=== PATIENT | male | born 1960 | race Caucasian/White ===

== ENCOUNTER 2018-10-05 12:44 | Emergency (ER) | payer BC ==
[2018-10-05 14:19] VITALS: BP 132/70
--- NOTE | 2018-10-05 16:20 | UC ---
Lower Extremity/Ankle HPI - HPI Summary HPI Summary: Pt c/o gradual onset of large tender blister on the ball of left foot. Pt reports that he stuck a pin in the blister at home " a few days ago". Pt wear steel toe boots daily at work, has DM and neuropathy in bilateral feet. Pt stands for prolonged periods of time. - History of Current Complaint Chief Complaint: UCSkin Stated Complaint: BILATERAL FOOT COMPLAINT Time Seen by Provider: 10/05/18 15:21 Hx Obtained From: Patient Onset/Duration: Gradual Onset, Lasting Days, Still Present Severity Initially: Mild Severity Currently: Mild Pain Intensity: 4 Pain Scale Used: 0-10 Numeric Aggravating Factor(s): Standing, Ambulation Alleviating Factor(s): Nothing Able to Bear Weight: Yes - Risk Factors Gout Risk Factors: Age Over 40, Male, Diabetes DVT Risk Factors: Negative Septic Arthritis Risk Factor: Negative - Allergies/Home Medications Allergies/Adverse Reactions: Allergies Allergy/AdvReac Type Severity Reaction Status Date / Time oxycodone Allergy Hives Verified 10/05/18 14:12 Home Medications: Home Medications Aspirin TAB* [Aspirin 325 MG TAB*] 325 mg PO DAILY 10/05/18 [History Confirmed 10/05/18] Insulin GLARGINE(*) [Lantus(*)] 20 units SUBCUT QPM 10/05/18 [History Confirmed 10/05/18] Liraglutide (NF) [Victoza (NF)] 18 mg SUBCUT QAM 10/05/18 [History Confirmed 04/15] Simvastatin TAB(NF) [Zocor 10 MG (NF)] 10 mg PO DAILY 10/05/18 [History Confirmed 10/05/18] Varenicline 0.5 mg Tab(Nf) [Chantix 0.5 MG TAB(NF)] 0.5 mg PO BID 10/05/18 [ History Confirmed 10/05/18] glyBURIDE TAB* [Diabeta TAB*] 2.5 mg PO BID 10/05/18 [History Confirmed 10/05/18 ] metFORMIN* [Glucophage 500 MG TAB *] 500 mg PO BID 10/05/18 [History Confirmed 10/05/18] PMH/Surg Hx/FS Hx/Imm Hx Previously Healthy: Yes Endocrine History: Diabetes Cardiovascular History: Cardiac Disease - Surgical History Surgical History: Yes Surgery Procedure, Year, and Place: Triple CABG, 2004, [facility] - Family History Known Family History: Positive: Cardiac Disease - Social History Occupation: Employed Full-time Lives: With Family Alcohol Use: Rare Substance Use Type: None Smoking Status (MU): Heavy Every Day Tobacco Smoker Amount Used/How Often: 2 PPD Length of Time of Smoking/Using Tobacco: On and Off Since Age 17 Have You Smoked in the Last Year: Yes Household Exposure Type: Cigarettes Review of Systems All Other Systems Reviewed And Are Negative: Yes Constitutional: Positive: Negative Skin: Positive: Other - blister left foot Eyes: Positive: Negative ENT: Positive: Negative Respiratory: Positive: Negative Cardiovascular: Positive: Negative Gastrointestinal: Positive: Negative Genitourinary: Positive: Negative Motor: Positive: Negative Neurovascular: Positive: Other - neuropathy bilateral feet at baseline Musculoskeletal: Positive: Negative Neurological: Positive: Negative Psychological: Positive: Negative Is Patient Immunocompromised?: No Physical Exam Triage Information Reviewed: Yes Appearance: Well-Appearing Vital Signs: Initial Vital Signs Temp 97.9 F 10/05/18 14:10 Pulse 82 10/05/18 14:10 Resp 18 10/05/18 14:10 BP 132/70 10/05/18 14:10 Pulse Ox 99 10/05/18 14:10 Vital Signs Reviewed: Yes Eye Exam: Normal ENT Exam: Normal Dental Exam: Normal Neck exam: Normal Respiratory Exam: Normal Respiratory: Positive: No respiratory distress Musculoskeletal: Positive: Edema @ - non pitting edema bilateral LE Neurological Exam: Normal Psychological Exam: Normal Skin Exam: Other - left foot, plantar aspect drained blister ~ 3cm X 2 cm. mild swelling and erythema at base of great toe and second toe. scant amount tinea between toes Lower Extremity Course/Dx - Differential Dx/Diagnosis Differential Diagnosis/HQI/PQRI: Cellulitis, Infection Provider Diagnosis: Diabetic foot infection, Tinea pedis, left Discharge - Sign-Out/Discharge Documenting (check all that apply): Patient Departure All imaging exams completed and their final reports reviewed: No Studies - Discharge Plan Condition: Stable Disposition: HOME Prescriptions: Cephalexin CAP* [Keflex 500 CAP*] 500 mg PO Q8H #30 cap Patient Education Materials: Antifungals (On the skin), Diabetic Foot Ulcers ( ED) Referrals: Uvaldo Mirza MD [Primary Care Provider] - As Soon As Possible Additional Instructions: Please follow up with your PCP as soon as possible. Please keep your feet clean and dry and have someone look at them daily until your wound heals. YOu have been referred to : Wound care: Kristen White [address] [place] [id number] - Billing Disposition and Condition Condition: STABLE Disposition: Home
== END 2018-10-05 15:48 | disposition home or self-care (01) ==
LOC: UCCORT 12:44
DX: E11.69 Type 2 diabetes mellitus with other specified complication (principal); B35.3 Tinea pedis; E11.40 Type 2 diabetes mellitus with diabetic neuropathy, unspecified; L08.89 Other specified local infections of the skin and subcutaneous tissue; F17.210 Nicotine dependence, cigarettes, uncomplicated; Z88.5 Allergy status to narcotic agent; Z79.82 Long term (current) use of aspirin; Z79.4 Long term (current) use of insulin
CPT/HCPCS: 99202; G0463